=== PATIENT | male | born 1965 | race Caucasian/White ===

== ENCOUNTER 2016-04-22 23:42 | Inpatient (IN) | payer OTHER ==
[~2016-04-22] VITALS: Ht 180.3 cm; Wt 76.0 kg
[~2016-04-22 23:42] MED LIST: AMLACTIN400 GM TOP; AMLACTIN400 GM TP; ASPIRIN EC81 MG PO; BACTROBAN NASAL1 G1 TOP; BETADINE OINT (30 GM EXT; CELEXA20 MG PO; CORDARONE 200M200 MG PO; CYMBALTA30 MG PO; DAILY MULTIPLE1 EAC1 PO; DIGOXIN125 MCG PO; ENTRESTO PO; FLEXERIL 10 MG10 MG PO; GLUCERNA237 ML PO; HUMALOG100 UNIT/1 SC; HUMALOG100 UNIT/1 SQ; HYDROCODON-ACE1 EAC4 PO; INVANZ 1 GM VIAL1 GM IV; IPRAT-ALBUT 0.5-3 ML INH; IRON325 M1 PO; LANOXIN125 MCG PO; LANTUS100 UNIT/1 SQ; LASIX 40 MG TAB40 MG PO; LASIX40 MG PO; LEVAQUIN500 MG PO; LEVEMIR100 UNIT/1 SC; LIPITOR TAB 2020 MG PO; LISINOPRIL10 MG PO; LOPRESSOR50 MG PO; LORTAB 10-3251 EACH PO; METOPROLOL TAR100 MG PO; MIRALAX17 GM PO; MULTI-DAY VITA1 EACH PO; NAPRELAN500 MG PO; NEURONTIN 100100 MG PO; NEURONTIN 400400 MG PO; PEPCID20 MG PO; PERCOCET 10-321 EACH PO; PRAVACHOL20 MG PO; PRAVACHOL40 MG PO; PROSCAR5 MG PO; PROTONIX40 MG PO; TOPROL XL 25 MG25 MG PO; VALIUM 5 MG TAB5 MG PO; VANCOMYCIN HCL1 GM IV; VITAMIN A10000 UNI1 PO; VITAMIN A10000 UNI2 PO; VITAMIN B-121000 MC3 PO; VITAMIN B-121000 MCG PO; VITAMIN C 500500 MG PO; VITAMIN D50000 UNIT PO; ZESTRIL5 MG PO; ZOFRAN4 MG PO; ZYVOX 600 MG T600 MG PO
[2016-04-23 01:04] LABS: HEMOGLOBIN 16.1 gm/dl (14.0-17.5); RED BLOOD COUNT 5.32 M/UL (4.20-5.50)
[2016-04-23 01:41] LABS: BUN/CREATININE RATIO 13 (0-10)
[2016-04-23 05:45] LABS: HEMOGLOBIN 12.5 gm/dl (14.0-17.5); RED BLOOD COUNT 4.23 M/UL (4.20-5.50); WHITE BLOOD COUNT 11.1 K/UL (4.5-11.0)
[2016-04-24 02:12] LABS: HEMOGLOBIN 11.3 gm/dl (14.0-17.5); WHITE BLOOD COUNT 10.1 K/UL (4.5-11.0)
[2016-04-24 02:29] LABS: RED BLOOD COUNT 3.79 M/UL (4.20-5.50)
[2016-04-24 03:05] LABS: BUN/CREATININE RATIO 15 (0-10)
[2016-04-24 11:33] LABS: WHITE BLOOD COUNT 27.5 K/UL (4.5-11.0)
[2016-04-25 04:30] LABS: RED BLOOD COUNT 3.76 M/UL (4.20-5.50); WHITE BLOOD COUNT 8.8 K/UL (4.5-11.0)
[2016-04-25 04:52] LABS: BUN/CREATININE RATIO 23 (0-10)
[2016-04-25] MEDS ORDERED: LOPRESSOR 25 MG25 MG PO (11:02)
[2016-04-25] MEDS ORDERED: AMIODARONE HCL400 MG PO (11:07)
[2016-04-25] MEDS ORDERED: ENTRESTO PO (11:11)
== END 2016-04-25 12:30 | disposition home health service (06) | DRG 208 ==
LOC: ER1 23:42 → CCU 04-23 03:20 → ZEROF 04-23 03:20 → CCU 04-23 05:00
PROVIDERS: Family Medicine; Internal Medicine Interventional Cardiology; Student in an Organized Health Care Education/Training Program; ADMIT Hospitalist
PROC: 0BH17EZ Insertion of Endotracheal Airway into Trachea, Via Natural or Artificial Opening (ICD-10-PCS; principal; 2016-04-23)
PROC: 5A1935Z Respiratory Ventilation, Less than 24 Consecutive Hours (ICD-10-PCS; principal; 2016-04-23)
PROC: 5A2204Z Restoration of Cardiac Rhythm, Single (ICD-10-PCS; principal; 2016-04-23)
DX: J96.02 Acute respiratory failure with hypercapnia (principal); R57.0 Cardiogenic shock; E11.00 Type 2 diabetes mellitus with hyperosmolarity without nonketotic hyperglycemic-hyperosmolar coma (NKHHC); I50.23 Acute on chronic systolic (congestive) heart failure; G93.40 Encephalopathy, unspecified; I47.1 Supraventricular tachycardia; I13.0 Hypertensive heart and chronic kidney disease with heart failure and stage 1 through stage 4 chronic kidney disease, or unspecified chronic kidney disease; N17.9 Acute kidney failure, unspecified; K56.7 Ileus, unspecified; E87.2 Acidosis; I42.0 Dilated cardiomyopathy; J96.01 Acute respiratory failure with hypoxia; I48.0 Paroxysmal atrial fibrillation; R63.4 Abnormal weight loss; I73.9 Peripheral vascular disease, unspecified; N18.3 Chronic kidney disease, stage 3 (moderate); Z89.511 Acquired absence of right leg below knee; J44.9 Chronic obstructive pulmonary disease, unspecified; G47.33 Obstructive sleep apnea (adult) (pediatric); F17.220 Nicotine dependence, chewing tobacco, uncomplicated; Z91.19 Patient's noncompliance with other medical treatment and regimen; Z95.810 Presence of automatic (implantable) cardiac defibrillator; Z88.0 Allergy status to penicillin; Z88.2 Allergy status to sulfonamides; Z88.5 Allergy status to narcotic agent; Z88.3 Allergy status to other anti-infective agents; Z88.8 Allergy status to other drugs, medicaments and biological substances; Z79.82 Long term (current) use of aspirin; Z79.01 Long term (current) use of anticoagulants; Z79.4 Long term (current) use of insulin; Z79.891 Long term (current) use of opiate analgesic; Z79.899 Other long term (current) drug therapy; Z80.1 Family history of malignant neoplasm of trachea, bronchus and lung; Z82.49 Family history of ischemic heart disease and other diseases of the circulatory system
CPT/HCPCS: ECHO; 31500; 36415; 36600; 70450; 71010; 80048; 80053; 80162; 82009; 82248; 82550; 82553; 82803; 82962; 83605; 83735; 83874; 83880; 84439; 84443; 84484; 85025; 85027; 85610; 85730; 87040; 87086; 93005; 93306; 94002; 94640; 94664; 96365; 96366; 96375; 96376; 99291; 99292; C9113; J0282; J0330; J1644; J1650; J1815; J1940; J2185; J7030; J7050; Q9963

== ENCOUNTER 2016-05-11 15:04 | Emergency (ER) | payer OTHER ==
[~2016-05-11 15:04] MED LIST changes: +AMIODARONE HCL400 MG PO; +LOPRESSOR 25 MG25 MG PO
[2016-05-11 16:13] LABS: HEMOGLOBIN 13.8 gm/dl (14.0-17.5); RED BLOOD COUNT 4.67 M/UL (4.20-5.50); WHITE BLOOD COUNT 7.8 K/UL (4.5-11.0)
== END 2016-05-11 19:30 | disposition home or self-care (01) ==
LOC: ER1 15:04
PROVIDERS: Emergency Medicine
DX: K59.00 Constipation, unspecified (principal); E87.5 Hyperkalemia; K62.89 Other specified diseases of anus and rectum; E11.9 Type 2 diabetes mellitus without complications; E78.5 Hyperlipidemia, unspecified; J44.9 Chronic obstructive pulmonary disease, unspecified; I10 Essential (primary) hypertension; Z88.5 Allergy status to narcotic agent; Z88.6 Allergy status to analgesic agent
CPT/HCPCS: 36415; 80053; 82272; 85025; 85610; 85730; 94664; 96374; 96375; 99283; J2270; J2405; J7030

== ENCOUNTER → 2016-05-12 | Outpatient (CLI) | payer OTHER | LOC: LAB 13:51 | PROVIDERS: Emergency Medicine | DX: E87.5 Hyperkalemia (principal) | CPT/HCPCS: 80048 ==

== ENCOUNTER → 2016-06-11 | Outpatient (CLI) | payer OTHER | LOC: HEART 5 10:36 | DX: J96.90 Respiratory failure, unspecified, unspecified whether with hypoxia or hypercapnia (principal); J43.9 Emphysema, unspecified; J90 Pleural effusion, not elsewhere classified | CPT/HCPCS: 71020-FX ==

== ENCOUNTER 2016-06-20 16:37 | Emergency (ER) | payer OTHER | END 2016-06-20 19:20 | disposition home or self-care (01) | LOC: ER1 16:37 | DX: S50.312A Abrasion of left elbow, initial encounter (principal); S50.311A Abrasion of right elbow, initial encounter; S80.211A Abrasion, right knee, initial encounter; S50.812A Abrasion of left forearm, initial encounter; S50.811A Abrasion of right forearm, initial encounter; S80.812A Abrasion, left lower leg, initial encounter; V00.811A Fall from moving wheelchair (powered), initial encounter; Y92.009 Unspecified place in unspecified non-institutional (private) residence as the place of occurrence of the external cause | CPT/HCPCS: 73552; 99284 ==

== ENCOUNTER → 2016-07-15 | Outpatient (CLI) | payer OTHER | LOC: KOH-I 10:45 | DX: M25.561 Pain in right knee (principal); Z89.511 Acquired absence of right leg below knee | CPT/HCPCS: 73700 ==